=== PATIENT | male | born 1955 | race Caucasian/White ===

== ENCOUNTER 2017-08-24 10:04 | Emergency (ER) | payer BC, OTHER ==
[~2017-08-24] VITALS: Ht 182.9 cm; Wt 112.0 kg
[~2017-08-24 10:04] MED LIST: 1-ME1LIQ PO; CLON.1 PO; TAB-TAB PO
[2017-08-24 10:10] VITALS: BP 161/91; PULSE 73; RESP 19; TEMP 97.2; O2SAT 98
[2017-08-24] MEDS ORDERED: MORPHINE SULFATE 4 MG/ML INJ IV PUSH ONE ×2 (10:30→13:00)
[2017-08-24] MEDS ORDERED: ONDANSETRON HCL 4 MG/2 ML VIAL IV PUSH ONE (10:30)
--- NOTE | 2017-08-24 11:03 | RADRPT ---
EXAM DATE/TIME: 08/24/2017 10:50 [facility] COMPARISON: No previous studies available for comparison. INDICATIONS : Right flank pain, vomiting ORAL CONTRAST: No oral contrast ingested. RADIATION DOSE: 12.76 CTDIvol (mGy) MEDICAL HISTORY : Hypertension. SURGICAL HISTORY : None. ENCOUNTER: Initial ACUITY: 2 weeks PAIN SCALE: 6/10 LOCATION: Right flank TECHNIQUE: Volumetric scanning of the abdomen and pelvis was performed. Using automated exposure control and ad justment of the mA and/or kV according to patient size, radiation dose was kept as low as reasonably achievable to obtain optimal diagnostic quality images. DICOM format image data is available electro nically for review and comparison. FINDINGS: Lung bases are clear. Osseous structures are intact. There is hepatomegaly and diffuse decreased dens ity of the liver parenchyma characteristic of hepatic steatosis. Gallbladder, spleen, pancreas, adren als unremarkable. There are no renal calculi identified, hydronephrosis, or hydroureter. Urinary blad lc is unremarkable. A few scattered diverticuli are present. Fat containing umbilical hernia. The ap pendix is normal. No adenopathy or aneurysm. Scattered atherosclerotic calcifications are noted. CONCLUSION: 1. Hepatomegaly and hepatic steatosis. 2. Atherosclerosis. 3. No inflammatory changes are seen within the abdomen or pelvis. 4. Ater diverticuli without diverticulitis. Juan M Allred MD on August 24, 2017 at 10:59 Board Certified Radiologist. This report was verified electronically.
[2017-08-24 11:20] LABS: AUTOMATED NEUTROPHIL # 13.9 TH/MM3 (1.8-7.7); BASOPHIL % 0.1 % (0.0-2.0); EOSINOPHIL # 0.1 TH/MM3 (0-0.4); EOSINOPHIL % 0.6 % (0.0-4.0); HEMATOCRIT 44.6 % (39.0-51.0); HEMOGLOBIN 15.1 GM/DL (13.0-17.0); LYMPH % 4.7 % (9.0-44.0); LYMPHOCYTE # 0.7 TH/MM3 (1.0-4.8); MEAN CELL VOLUME 89.2 FL (80.0-100.0); MEAN CORPUSCULAR HEMOGLOBIN 30.1 PG (27.0-34.0); MEAN CORPUSCULAR HGB CONC 33.8 % (32.0-36.0); MEAN PLATELET VOLUME 8.5 FL (7.0-11.0); MONO % 5.4 % (0.0-8.0); MONOCYTE # 0.8 TH/MM3 (0-0.9); NEUT % 89.2 % (16.0-70.0); PLATELET COUNT 228 TH/MM3 (150-450); RED CELL DISTRIBUTION WIDTH 13.9 % (11.6-17.2); WHITE BLOOD COUNT 15.6 TH/MM3 (4.0-11.0)
[2017-08-24 11:41] LABS: ALBUMIN 4.2 GM/DL (3.4-5.0); ALT (GPT) 72 U/L (12-78); AST (GOT) 38 U/L (15-37); BICARBONATE 26.3 MEQ/L (21.0-32.0); BLOOD UREA NITROGEN 20 MG/DL (7-18); CALCIUM 9.1 MG/DL (8.5-10.1); CHLORIDE 102 MEQ/L (98-107); CREATININE 1.28 MG/DL (0.60-1.30); GLOMERULAR FILTRATION RATE 57 ML/MIN (>89); GLUCOSE,RANDOM 160 MG/DL (74-106); SODIUM (NA) 136 MEQ/L (136-145)
[2017-08-24 11:43] LABS: ALKALINE PHOSPHATASE 67 U/L (45-117); TOTAL BILIRUBIN ADULT 0.6 MG/DL (0.2-1.0); TOTAL PROTEIN 8.1 GM/DL (6.4-8.2)
[2017-08-24] MEDS ORDERED: DEXAMETHASONE SOD PHOS 20 MG/5 ML VIAL IV PUSH ONE (13:00)
[2017-08-24] MEDS ORDERED: LORazepam 2 MG/ML VIAL IV PUSH ONE (13:00)
[2017-08-24 13:28] LABS: BILIRUBIN, URINE NEG (NEG); BLOOD, URINE NEG (NEG); GLUCOSE,URINE TRACE mg/dL (NEG); HYALINE CAST, URINE 12 /lpf (RARE); KETONE, URINE NEG (NEG); MUCUS URINE FEW /lpf (OCC); NITRITE,URINE NEG (NEG); PH, URINE 5.5 (5.0-8.5); SQUAMOUS EPITHELIAL CELL URINE 3 /hpf (0-5); URINE COLOR YELLOW (YELLW/STRAW); URINE LEUKOCYTE ESTERASE TRACE (NEG)
--- NOTE | 2017-08-24 13:32 | PD ---
HPI . Right flank pain Chief Complaint: Syncope/Near-Syncope Time Seen by Provider: 12:05 Travel History International Travel<30 days: No Contact w/Intl Traveler<30days: No Traveled to known affect area: No History of Present Illness HPI This patient presents with a chief complaint of right flank pain which was so severe this morning that it caused him to faint. He states that he has been having flank pain for about the past 3 weeks. He states that the pain waxes and wanes but is constant. He states that the pain had been tolerable until today when it became acutely worse. He describes it as sharp pain which is exacerbated by movement. Other than the syncope, he has no associated symptoms. Specifically, no urinary tract symptoms no GI symptoms such as nausea or vomiting and no fever. Regarding the syncopal episode, he states that he was experiencing severe pain in the right flank area. He became diaphoretic and started seeing stars. He then fainted. He was found slumped over in his car by a coworker. His was then called and he was brought to the hospital for evaluation. The patient further reports to me that he has had bilateral lower extremity numbness for the last 6 months. He states that the numbness comes and goes. He states that he has not noticed any modifying factors. The patient reports that he has had previous fainting episodes related to pain. He further states that he had a negative cardiac workup done by Dr. Collier about a year ago. PFSH Past Medical History Hypertension: Yes (QUIT MEDS YEARS AGO) Social History Alcohol Use: Yes ([facility]) Tobacco Use: Yes Substance Use: No Allergies-Medications (Allergen,Severity, Reaction): Coded Allergies: No Known Allergies (Unverified Adverse Reaction, Unknown, 08/24/17) Reported Meds & Prescriptions Reported Meds & Active Scripts Active Catapres 0.1 mg (Clonidine HCl) 0.1 Mg Tab 1 Tab PO TID PRN Amlodipine Besylate 10 mg (Amlodipine Besylate) 10 Mg Tab 1 Tab PO DAILY Reported Multivitamin (Multivitamins) 1 Tab Tab 1 Tab PO DAILY Review of Systems Except as stated in HPI: all other systems reviewed are Neg General / Constitutional: Positive: Other (Diaphoresis prior to syncope), No: Fever, Chills Cardiovascular: No: Chest Pain or Discomfort Respiratory: No: Shortness of Breath Gastrointestinal: No: Nausea, Vomiting, Diarrhea Genitourinary: Positive: Flank Pain, No: Urgency, Frequency, Dysuria, Hematuria , Incontinence Neurologic: Positive: Syncope, Paresthesia, No: Focal Abnormalities Physical Exam Narrative GENERAL: Patient is currently resting comfortably following morphine. SKIN: warm/dry. Normal color and turgor. HEAD: Normocephalic. Atraumatic. EYES: Pupils equal and round. No scleral icterus. No injection or drainage. ENT: No nasal bleeding or discharge. Mucous membranes pink and moist. NECK: Trachea midline. Full range of motion without pain.. CARDIOVASCULAR: Regular rate and rhythm. RESPIRATORY: No accessory muscle use. Clear to auscultation. Breath sounds equal bilaterally. GASTROINTESTINAL: Abdomen soft. Nontender. Bowel sounds present. Nondistended. MUSCULOSKELETAL: Obvious pain in his right low back with movement. He was actually unable to tolerate sitting up so that I could check his back. NEUROLOGICAL: Awake and alert. No obvious cranial nerve deficits. Motor grossly within normal limits. Normal speech. PSYCHIATRIC: Appropriate mood and affect; insight and judgment normal. Data Data Last Documented VS Vital Signs Date Time Temp Pulse Resp B/P (MAP) Pulse Ox O2 Delivery O2 Flow Rate FiO2 08/24/17 10:10 97.2 73 19 161/91 (114) 98 Orders Orders Electrocardiogram (08/24/17 10:12) Complete Blood Count With Diff (08/24/17 10:12) Comprehensive Metabolic Panel (08/24/17 10:12) Iv Access Insert/Monitor (08/24/17 10:12) Troponin I (08/24/17 10:28) Urinalysis - C+S If Indicated (08/24/17 10:28) Ct Abd/Pel W/O Iv Contrast (08/24/17 10:28) Morphine Inj (Morphine Inj) (08/24/17 10:30) Ondansetron Inj (Zofran Inj) (08/24/17 10:30) Mri L Spine W/O Contrast (08/24/17 12:53) Dexamethasone Inj (Decadron Inj) (08/24/17 13:00) Morphine Inj (Morphine Inj) (08/24/17 13:00) Lorazepam Inj (Ativan Inj) (08/24/17 13:00) Labs Laboratory Tests Test 08/24/17 10:35 08/24/17 11:42 White Blood Count 15.6 TH/MM3 Red Blood Count 5.00 MIL/MM3 Hemoglobin 15.1 GM/DL Hematocrit 44.6 % Mean Corpuscular Volume 89.2 FL Mean Corpuscular Hemoglobin 30.1 PG Mean Corpuscular Hemoglobin Concent 33.8 % Red Cell Distribution Width 13.9 % Platelet Count 228 TH/MM3 Mean Platelet Volume 8.5 FL Neutrophils (%) (Auto) 89.2 % Lymphocytes (%) (Auto) 4.7 % Monocytes (%) (Auto) 5.4 % Eosinophils (%) (Auto) 0.6 % Basophils (%) (Auto) 0.1 % Neutrophils # (Auto) 13.9 TH/MM3 Lymphocytes # (Auto) 0.7 TH/MM3 Monocytes # (Auto) 0.8 TH/MM3 Eosinophils # (Auto) 0.1 TH/MM3 Basophils # (Auto) 0.0 TH/MM3 CBC Comment DIFF FINAL Differential Comment Blood Urea Nitrogen 20 MG/DL Creatinine 1.28 MG/DL Random Glucose 160 MG/DL Total Protein 8.1 GM/DL Albumin 4.2 GM/DL Calcium Level 9.1 MG/DL Alkaline Phosphatase 67 U/L Aspartate Amino Transf (AST/SGOT) 38 U/L Alanine Aminotransferase (ALT/SGPT) 72 U/L Total Bilirubin 0.6 MG/DL Sodium Level 136 MEQ/L Potassium Level 4.2 MEQ/L Chloride Level 102 MEQ/L Carbon Dioxide Level 26.3 MEQ/L Anion Gap 8 MEQ/L Estimat Glomerular Filtration Rate 57 ML/MIN Troponin I LESS THAN 0.02 NG/ML Urine Color YELLOW Urine Turbidity HAZY Urine pH 5.5 Urine Specific [place] 1.016 Urine Protein 30 mg/dL Urine Glucose (UA) TRACE mg/dL Urine Ketones NEG mg/dL Urine Occult Blood NEG Urine Nitrite NEG Urine Bilirubin NEG Urine Urobilinogen LESS THAN 2.0 MG/DL Urine Leukocyte Esterase TRACE Urine RBC 1 /hpf Urine WBC 1 /hpf Urine Squamous Epithelial Cells 3 /hpf Urine Hyaline Casts 12 /lpf Urine Mucus FEW /lpf Microscopic Urinalysis Comment CULT NOT INDICATED MDM Medical Decision Making Medical Screen Exam Complete: Yes Emergency Medical Condition: Yes Interpretation(s) EKG shows a sinus rhythm with no ST segment elevation or depression. He does have inferior Q waves. Differential Diagnosis Differential diagnosis of flank pain includes but is not limited to kidney stone , pyelonephritis, musculoskeletal pain, PE My differential diagnosis of syncope includes but is not limited to cardiac arrhythmia, hypovolemia, anemia, neurological catastrophe, vasovagal response Narrative Course This patient presents for the evaluation of flank pain which was very severe this morning and caused syncope. He has had a cardiac evaluation done here today because of the syncope but the syncopal episode seems to be clearly vasovagal. Furthermore, I am not concerned about PE as a cause for syncope because he has no chest pain or shortness of breath. The more pressing issue is the right flank pain. Last Impressions Abdomen/Pelvis CT 08/24/17 1028 Signed Impressions: Service Date/Time: Thursday, August 24, 2017 10:50 - CONCLUSION: 1. Hepatomegaly and hepatic steatosis. 2. Atherosclerosis. 3. No inflammatory changes are seen within the abdomen or pelvis. 4. Ater diverticuli without diverticulitis. Juan M Allred MD CBC & BMP Diagram 08/24/17 10:35 Total Protein 8.1, Albumin 4.2, Calcium Level 9.1, Alkaline Phosphatase 67, Aspartate Amino Transf (AST/SGOT) 38 H, Alanine Aminotransferase (ALT/SGPT) 72, Total Bilirubin 0.6 trop < 0.02 UA>>trace LE and is o/w neg. With this negative workup for kidney stone or AAA, I have ordered an MRI of his back to look for an HNP. My examination caused him a great deal of pain. I have ordered an additional dose of morphine as well as some Ativan for spasm. Diagnosis Primary Impression: Syncope Qualified Codes: R55 - Syncope and collapse Additional Impressions: Right flank pain Degenerative disc disease, lumbar Referrals: Harsh Aguilera MD, Brittney Lewis MD Patient Instructions: Degenerative Disc Disease (DC), General Instructions, Narcotic given in the ED Med/Other Pt SpecificInfo: Prescription(s) given Scripts Cyclobenzaprine (Flexeril) 10 Mg Tab 10 MG PO TID for Muscle Spasm, #30 TAB 0 Refills Prov: Avril Brian MD 08/24/17 Hydrocodone-Acetaminophen ([place]) 5 Mg-325 Mg Tab 1 TAB PO Q4H Y for PAIN, #12 TAB 0 Refills Prov: Avril Brian MD 08/24/17 Prednisone (Prednisone) 50 Mg Tab 50 MG PO DAILY for 5 Days, #5 TAB 0 Refills Prov: Avril Brian MD 08/24/17 Disposition: 01 DISCHARGE HOME Condition: Stable Avril Brian MD Aug 24, 2017 13:32
--- NOTE | 2017-08-24 16:31 | RADRPT ---
EXAM DATE/TIME: 08/24/2017 15:10 [facility] COMPARISON: No previous studies available for comparison. INDICATIONS : HNP. Back pain radiating into right side. MEDICAL HISTORY : Diabetes mellitus type 2. Hypertension. SURGICAL HISTORY : None. ENCOUNTER: Initial ACUITY: 1 week PAIN SCORE: 7/10 LOCATION: back TECHNIQUE: Multiplanar multisequence MRI of the lumbar spine was performed without contrast. FINDINGS: The most caudal appearing lumbar vertebra is numbered as L5. Sagittal and coronal reformats demonstrate adequate alignment of the lumbar vertebral bodies. No sign ificant abnormal marrow signals identified. The cord terminates at an appropriate location. There is desiccation of the disc within the lower lumbar spine. The paraspinous soft tissues are unremarkable. T12-L1: The thecal sac has a normal diameter. No evidence of disc bulge or protrusion. The neural foramina are patent bilaterally. L1-L2: There is partial desiccation of the disc with minimal disc bulge. The thecal space and foramina are a dequate. The facet joints are intact. L2-L3: There is partial desiccation of the disc with minimal disc bulge. The thecal space and foramina are a dequate. The facet joints are intact. L3-L4: There is partial desiccation of the disc. The thecal space and foramina are adequate. There is mild f acet arthritis bilaterally. L4-L5: There is desiccation of the disc with a small broad-based disc bulge. This effaces the ventral thecal sac. The residual thecal space is narrowed but adequate. There is some encroachment of disc bulge on the lateral recess and base of the foramina bilaterally. This is slightly more significant on the le ft than the right. L5-S1: The thecal space and neural foramina are adequate. There is advanced facet arthritis bilaterally. CONCLUSION: 1. Advanced facet arthritis at L4/5 and L5/S1. 2. Partial desiccation of the disc with small disc bulges at multiple levels. The most significant of these is at L4-5. Individual levels were dictated in detail above. Jose Chavez MD on August 24, 2017 at 16:26 Board Certified Radiologist. This report was verified electronically.
[2017-08-24] MEDS ORDERED: NORC5TAB PO (16:48)
[2017-08-24] MEDS ORDERED: PRED50 PO (16:48)
[2017-08-24] MEDS ORDERED: CYCL10TA PO (16:48)
--- NOTE | 2017-08-25 20:24 | EKG ---
Date Performed: 08/24/2017 Time Performed: 13:32:55 PTAGE: 61 years EKG: Sinus rhythm LOW QRS VOLTAGE IN PRECORDIAL LEADS ANTEROSEPTAL MYOCARDIAL INFARCTION ABNORMAL ECG PREVIOUS TRACING : 12/19/2014 10.27 Since the previous tracing, Q waves present DOCTOR: Jason Trevino Interpretating Date/Time 08/25/2017 20:22:21
== END 2017-08-24 17:17 | disposition home or self-care (01) ==
LOC: NEPD 10:04
DX: R55 Syncope and collapse (principal); R10.9 Unspecified abdominal pain; M51.36 Other intervertebral disc degeneration, lumbar region; R20.0 Anesthesia of skin; I10 Essential (primary) hypertension; Z72.0 Tobacco use
CPT/HCPCS: 72148; 74176; 80053; 81001; 84484; 85025; 93005; 96374; 96375; 96376; 99285; J1100; J2060; J2270; J2405

== ENCOUNTER 2017-10-02 09:01 | Emergency (ER) | payer OTHER ==
[~2017-10-02] VITALS: Ht 182.9 cm; Wt 110.0 kg
[~2017-10-02 09:01] MED LIST changes: +CYCL10TA PO; +NORC5TAB PO; +PRED50 PO
[2017-10-02 09:07] VITALS: BP 108/59; PULSE 69; RESP 20; O2SAT 95
[2017-10-02 09:11] VITALS: BP 108/59; PULSE 63
[2017-10-02] MEDS ORDERED: ATOR10TA15 PO (09:14)
[2017-10-02] MEDS ORDERED: LISI-519 PO (09:14)
[2017-10-02] MEDS ORDERED: METF500T PO (09:14)
--- NOTE | 2017-10-02 09:40 | PD ---
HPI Chief Complaint: Syncope/Near-Syncope Time Seen by Provider: 09:10 Travel History International Travel<30 days: No Contact w/Intl Traveler<30days: No Traveled to known affect area: No History of Present Illness HPI 62yo M with PMH of HTN and DM here with c/o episodes of lightheadedness today. Said he has been sweating for 3 days and had nonbloody diarrhea today. His urine has also been dark. He felt lightheaded but did not pass out. Had some nausea and epigastric pain en route and was given zofran by [facility] and now no longer nauseous and has no abdominal pain. Denies any fever, chest pain, sob, vomiting, current abdominal pain, focal weakness or numbness. Pt is currently having a neurologic work up as outpatient. PFSH Past Medical History Diabetes: Yes Patient Takes Glucophage: Yes Hypertension: Yes Past Surgical History Surgical History: No Previous Surgery Social History Alcohol Use: Yes (OCC) Tobacco Use: No Substance Use: Yes Allergies-Medications (Allergen,Severity, Reaction): Coded Allergies: No Known Allergies (Unverified Adverse Reaction, Unknown, 10/02/17) Reported Meds & Prescriptions Reported Meds & Active Scripts Active Reported Atorvastatin (Atorvastatin Calcium) 10 Mg Tab 10 Mg PO HS Metformin (Metformin HCl) 500 Mg Tab 500 Mg PO DAILY With a meal Lisinopril 5 Mg Tab 5 Mg PO BID Review of Systems Except as stated in HPI: all other systems reviewed are Neg Physical Exam Narrative GENERAL: 62yo M in mild distress. SKIN: Focused skin assessment warm/dry. HEAD: Atraumatic. Normocephalic. EYES: Pupils equal and round at 3mm bilaterally. EOMI. ENT: No nasal bleeding or discharge. Mucous membranes pink and moist. NECK: Trachea midline. No JVD. CARDIOVASCULAR: Regular rate and rhythm. No murmur appreciated. RESPIRATORY: No accessory muscle use. Clear to auscultation. Breath sounds equal bilaterally. GASTROINTESTINAL: Abdomen soft, non-tender, nondistended. MUSCULOSKELETAL: No obvious deformities. No clubbing. No cyanosis. +Bilateral lower extremity edema. NEUROLOGICAL: Awake and alert. No obvious cranial nerve deficits. Motor grossly within normal limits in all extremities. Sensation intact. Normal speech. PSYCHIATRIC: Appropriate mood and affect; insight and judgment normal. Data Data Last Documented VS Vital Signs Date Time Temp Pulse Resp B/P (MAP) Pulse Ox O2 Delivery O2 Flow Rate FiO2 10/02/17 11:51 98.7 10/02/17 11:31 80 18 94 Room Air Orders Orders Basic Metabolic Panel (Bmp) (10/02/17 09:36) Complete Blood Count With Diff (10/02/17 09:36) Magnesium (Mg) (10/02/17 09:36) Troponin I (10/02/17 09:36) Urinalysis - C+S If Indicated (10/02/17 09:36) Blood Glucose (10/02/17 09:36) Orthostatic Vital Signs (10/02/17 09:36) Lipase (10/02/17 09:36) Sodium Chlorid 0.9% 500 Ml Inj (Ns 500 M (10/02/17 10:45) Electrocardiogram (10/02/17 09:11) Labs Laboratory Tests Test 10/02/17 09:40 10/02/17 10:20 10/02/17 12:30 Blood Urea Nitrogen 20 MG/DL Creatinine 1.63 MG/DL Random Glucose 217 MG/DL Calcium Level 9.0 MG/DL Magnesium Level 1.5 MG/DL Sodium Level 135 MEQ/L Potassium Level 4.3 MEQ/L Chloride Level 103 MEQ/L Carbon Dioxide Level 24.3 MEQ/L Anion Gap 8 MEQ/L Estimat Glomerular Filtration Rate 43 ML/MIN Troponin I LESS THAN 0.02 NG/ML Lipase 234 U/L Urine Color YELLOW Urine Turbidity CLEAR Urine pH 6.5 Urine Specific [place] 1.018 Urine Protein 30 mg/dL Urine Glucose (UA) 1000 mg/dL Urine Ketones NEG mg/dL Urine Occult Blood TRACE Urine Nitrite NEG Urine Bilirubin NEG Urine Urobilinogen 2.0 MG/DL Urine Leukocyte Esterase NEG Urine RBC 5 /hpf Urine WBC 2 /hpf Urine Squamous Epithelial Cells 1 /hpf Urine Transitional Epithelial Cells <1 /hpf Urine Hyaline Casts 3 /lpf Urine Mucus FEW /lpf Microscopic Urinalysis Comment CULT NOT INDICATED White Blood Count 5.5 TH/MM3 Red Blood Count 4.69 MIL/MM3 Hemoglobin 13.8 GM/DL Hematocrit 40.8 % Mean Corpuscular Volume 87.0 FL Mean Corpuscular Hemoglobin 29.5 PG Mean Corpuscular Hemoglobin Concent 33.9 % Red Cell Distribution Width 13.9 % Platelet Count 150 TH/MM3 Mean Platelet Volume 8.2 FL Neutrophils (%) (Auto) 78.8 % Lymphocytes (%) (Auto) 12.3 % Monocytes (%) (Auto) 8.5 % Eosinophils (%) (Auto) 0.0 % Basophils (%) (Auto) 0.4 % Neutrophils # (Auto) 4.3 TH/MM3 Lymphocytes # (Auto) 0.7 TH/MM3 Monocytes # (Auto) 0.5 TH/MM3 Eosinophils # (Auto) 0.0 TH/MM3 Basophils # (Auto) 0.0 TH/MM3 CBC Comment DIFF FINAL Differential Comment [facility] Medical Decision Making Medical Screen Exam Complete: Yes Emergency Medical Condition: Yes Interpretation(s) EKG: NSR 64bpm. Normal axis. No ST segment elevation or depression. Differential Diagnosis Dehydration vs. UTI vs. electrolyte abnormality vs. vasovagal near syncope Narrative Course 62yo M with episodes of lightheadedness today. Labs reviewed, no leukocytosis. H/H normal. Troponin negative. Lipase normal. BUN/creatinine elevated at 20 /1.63 which is slightly more than baseline. Glucose 217. UA showed WBC 2. Culture not indicated. Orthostatic negative. Pt given NS IVF. Pt reevaluated at bedside and said he has no dizziness or lightheadedness anymore. Pt has been walking about with no lightheadedness. Pt has no abdominal pain and never did here. He is very well appearing and has neurology follow up. Denies any chest pain or sob. Pt wants to go home. Return precautions given. Diagnosis Primary Impression: Elevated serum creatinine Patient Instructions: General Instructions Departure Forms: Tests/Procedures Additional Instructions: Please follow up with your primary care physician and drink plenty of fluid. Your creatinine is elevated at 1.63 which is a little higher than your normal so please follow up with your regular doctor. Return to the ED if symptoms return. Med/Other Pt SpecificInfo: No Change to Meds Disposition: 01 DISCHARGE HOME Condition: Stable Lucinda Ramirez Oct 02, 2017 09:40
[2017-10-02 10:11] LABS: TROPONIN I LESS THAN 0.02 NG/ML (0.02-0.05)
[2017-10-02 10:14] LABS: BICARBONATE 24.3 MEQ/L (21.0-32.0); BLOOD UREA NITROGEN 20 MG/DL (7-18); CHLORIDE 103 MEQ/L (98-107); CREATININE 1.63 MG/DL (0.60-1.30); GLOMERULAR FILTRATION RATE 43 ML/MIN (>89); GLUCOSE,RANDOM 217 MG/DL (74-106); MAGNESIUM 1.5 MG/DL (1.5-2.5); SODIUM (NA) 135 MEQ/L (136-145)
[2017-10-02] MEDS ORDERED: SODIUM CHLORID 0.9% 500 ML INJ 500 ML IV ONE (10:45)
[2017-10-02 10:58] VITALS: BP_SYST 113; BP_SYST 121; BP_DIAS 60; BP_DIAS 62; BP_DIAS 68
[2017-10-02 11:21] LABS: BILIRUBIN, URINE NEG (NEG); BLOOD, URINE TRACE (NEG); GLUCOSE,URINE 1000 mg/dL (NEG); HYALINE CAST, URINE 3 /lpf (RARE); KETONE, URINE NEG (NEG); MUCUS URINE FEW /lpf (OCC); NITRITE,URINE NEG (NEG); PH, URINE 6.5 (5.0-8.5); SQUAMOUS EPITHELIAL CELL URINE 1 /hpf (0-5); TRANSITIONAL EPI CELLS, URINE <1 /hpf; URINE COLOR YELLOW (YELLW/STRAW); URINE LEUKOCYTE ESTERASE NEG (NEG)
[2017-10-02 11:31] VITALS: BP 113/68; PULSE 80; RESP 18; O2SAT 94
[2017-10-02 11:51] VITALS: TEMP 98.7
[2017-10-02 12:44] LABS: AUTOMATED NEUTROPHIL # 4.3 TH/MM3 (1.8-7.7); BASOPHIL % 0.4 % (0.0-2.0); HEMATOCRIT 40.8 % (39.0-51.0); HEMOGLOBIN 13.8 GM/DL (13.0-17.0); LYMPH % 12.3 % (9.0-44.0); LYMPHOCYTE # 0.7 TH/MM3 (1.0-4.8); MEAN CORPUSCULAR HEMOGLOBIN 29.5 PG (27.0-34.0); MEAN CORPUSCULAR HGB CONC 33.9 % (32.0-36.0); MEAN PLATELET VOLUME 8.2 FL (7.0-11.0); MONO % 8.5 % (0.0-8.0); MONOCYTE # 0.5 TH/MM3 (0-0.9); NEUT % 78.8 % (16.0-70.0); PLATELET COUNT 150 TH/MM3 (150-450); RED BLOOD COUNT 4.69 MIL/MM3 (4.50-5.90); RED CELL DISTRIBUTION WIDTH 13.9 % (11.6-17.2); WHITE BLOOD COUNT 5.5 TH/MM3 (4.0-11.0)
--- NOTE | 2017-10-03 08:58 | EKG ---
Date Performed: 10/02/2017 Time Performed: 09:11:31 PTAGE: 62 years EKG: Sinus rhythm NORMAL ECG PREVIOUS TRACING : 08/24/2017 13.32 DOCTOR: Maurice Handy Interpretating Date/Time 10/03/2017 08:57:30
== END 2017-10-02 13:47 | disposition home or self-care (01) ==
LOC: NEPE 09:01
DX: R79.89 Other specified abnormal findings of blood chemistry (principal); E11.9 Type 2 diabetes mellitus without complications; I10 Essential (primary) hypertension; Z79.84 Long term (current) use of oral hypoglycemic drugs
CPT/HCPCS: 80048; 81001; 83690; 83735; 84484; 85025; 93005; 96360; 99284; J7040